=== PATIENT | female | born 1945 | race Caucasian/White ===

== ENCOUNTER 2019-06-29 11:59 | Inpatient (IN) | payer MEDICARE, MEDICAID ==
[~2019-06-29] VITALS: Ht 160 cm; Wt 87.1 kg
[2019-06-29] MEDS ORDERED: ALBU8.5H8 INH (12:28)
[2019-06-29] MEDS ORDERED: IPRA3AMP23 NEB (12:28)
[2019-06-29] MEDS ORDERED: SENN-18 PO (12:28)
[2019-06-29] MEDS ORDERED: BUSP10TA3 PO (12:28)
[2019-06-29] MEDS ORDERED: QUET50TA PO (12:28)
[2019-06-29] MEDS ORDERED: ASPI81TA31 PO (12:28)
[2019-06-29] MEDS ORDERED: EZET10TA32 PO (12:28)
[2019-06-29] MEDS ORDERED: HYDR-4354 PO (12:28)
[2019-06-29] MEDS ORDERED: OMEP20CA11 PO (12:28)
[2019-06-29] MEDS ORDERED: DOCU250C89 PO (12:28)
[2019-06-29] MEDS ORDERED: LORA2TAB95 PO (12:28)
[2019-06-29] MEDS ORDERED: MIRT15TA7 PO (12:28)
[2019-06-29] MEDS ORDERED: OXYB10TA2 PO (12:28)
[2019-06-29] MEDS ORDERED: METO50TA16 PO (12:28)
[2019-06-29] MEDS ORDERED: BUDE10.2 INH (12:28)
[2019-06-29] MEDS ORDERED: QUET300T2 PO (12:28)
[2019-06-29] MEDS ORDERED: SIMV-46 PO (12:28)
[2019-06-29] MEDS ORDERED: [UNRECOGNIZED DRUG - CODE] SL (12:28)
[2019-06-29] MEDS ORDERED: MELA5TAB PO (12:28)
[2019-06-29] MEDS ORDERED: VENL75CA56 PO (12:28)
[2019-06-29] MEDS ORDERED: METF-440 PO (12:28)
[2019-06-29 12:45] VITALS: BP 151/73
[2019-06-29] MEDS ORDERED: MAG HYDROX/AL HYDROX/SIMETH 30 ML LIQUID UDC PO PRN (14:00)
[2019-06-29] MEDS ORDERED: BLOOD SUGAR DIAGNOSTIC 1 EACH STRIP VI ONE (14:00)
[2019-06-29 15:24] VITALS: BP 97/43
[2019-06-29] MEDS: CLONAZEPAM 0.5 MG TABLET PO PRN ×2 (16:37→22:45)
[2019-06-29] MEDS: ACETAMINOPHEN 325 MG TABLET PO PRN (16:38)
[2019-06-29] MEDS ORDERED: ALBUTEROL SULFATE 8 GM HFA.AER.AD INH PRN (17:15)
[2019-06-29] MEDS ORDERED: PNEUMOCOCCAL 23-VAL P-SAC VAC 0.5 ML VIAL IM ONE (18:00)
[2019-06-29 20:00] VITALS: BP 141/50
[2019-06-29] MEDS: SIMVASTATIN 20 MG TABLET PO SCH (20:19)
[2019-06-29] MEDS: HYDROCODONE/APAP 10-325 MG TABLET PO PRN (22:45)
[2019-06-30] MEDS: TEMAZEPAM 7.5 MG CAPSULE PO PRN ×2 (01:11→21:20)
[2019-06-30] MEDS: ACETAMINOPHEN 325 MG TABLET PO PRN ×3 (04:59→22:35)
[2019-06-30 06:58] LABS: BASOPHILS % (AUTO) 0.8 % (0.0-2.0); EOSINOPHILS # (AUTO) 0.1 K/uL (0.0-0.7); EOSINOPHILS % (AUTO) 1.3 % (0.0-7.0); HEMATOCRIT 34.2 % (31.2-41.9); HEMOGLOBIN 11.5 g/dL (10.9-14.3); LYMPHOCYTES # (AUTO) 1.2 K/uL (20.0-40.0); LYMPHOCYTES % (AUTO) 19.4 % (20.5-51.5); MEAN CORPUSCULAR HEMOGLOBIN 31.2 uug (24.7-32.8); MEAN CORPUSCULAR HGB CONC 34 g/dL (32.3-35.6); MEAN CORPUSCULAR VOLUME 93.1 fL (75.5-95.3); MONOCYTES # (AUTO) 0.4 K/uL (2.0-10.0); MONOCYTES % (AUTO) 6.4 % (0.0-11.0); NEUTROPHILS # (AUTO) 4.3 K/uL (1.8-8.9); NEUTROPHILS % (AUTO) 72.1 % (38.5-71.5); PLATELET COUNT (AUTO) 203 K/uL (179-408); RED BLOOD CELL COUNT(AUTO) 3.68 MIL/uL (3.63-4.92)
[2019-06-30 07:15] LABS: THYROID STIMULATING HORMONE 1.264 mIU/mL (0.358-3.740)
[2019-06-30 07:33] LABS: BILIRUBIN,TOTAL 0.2 mg/dL (0.2-1.0); CREATININE 0.7 mg/dL (0.6-1.3); MAGNESIUM 1.4 mg/dL (1.8-2.4); PHOSPHOROUS 3.1 mg/dL (2.5-4.9); POTASSIUM 4.1 mmol/L (3.5-5.1); TOTAL PROTEIN, SERUM 6.9 g/dL (6.4-8.2)
[2019-06-30 08:00] VITALS: BP 166/40
[2019-06-30] MEDS: METFORMIN HCL 500 MG TABLET PO SCH ×2 (08:29→17:30)
[2019-06-30] MEDS: SENNOSIDES 1 TABLET PO SCH ×2 (08:31→16:33)
[2019-06-30] MEDS: HYDROCODONE/APAP 10-325 MG TABLET PO PRN ×2 (08:31→20:10)
[2019-06-30] MEDS: ASPIRIN 81 MG TAB.CHEW PO SCH (08:31)
[2019-06-30] MEDS: DOCUSATE SODIUM 250 MG CAPSULE PO SCH ×2 (08:31→16:33)
[2019-06-30] MEDS: EZETIMIBE 10 MG TABLET PO SCH (08:32)
[2019-06-30] MEDS: OXYBUTYNIN XL 5 MG TABSR PO SCH (08:32)
[2019-06-30] MEDS ORDERED: OXYBUTYNIN CHLORIDE 20 MG PO SCH (09:00)
[2019-06-30] MEDS ORDERED: HYDROCODONE/APAP 10-325 MG TABLET PO SCH (09:00)
[2019-06-30] MEDS ORDERED: MAGNESIUM OXIDE 400 MG TABLET PO ONE (14:15)
[2019-06-30] MEDS: CLONAZEPAM 0.5 MG TABLET PO PRN (15:22)
[2019-06-30 16:00] VITALS: BP 194/91
[2019-06-30] MEDS: FLUTICASONE/VILANTEROL 1 EACH BLST.W.DEV INH SCH (16:21)
[2019-06-30] MEDS: VENLAFAXINE 25 MG TABLET PO SCH ×2 (16:29→20:45)
[2019-06-30] MEDS: busPIRone 10 MG TABLET PO SCH (16:30)
[2019-06-30] MEDS: QUETIAPINE FUMARATE 25 MG TABLET PO SCH (16:33)
[2019-06-30 18:09] VITALS: BP 153/72
[2019-06-30 20:17] VITALS: BP 133/48
[2019-06-30] MEDS: SIMVASTATIN 20 MG TABLET PO SCH (20:45)
[2019-06-30] MEDS: MIRTAZAPINE 15 MG TABLET PO SCH (20:46)
[2019-06-30] MEDS: QUETIAPINE FUMARATE 200 MG TABLET PO SCH (20:46)
[2019-07-01] MEDS: CLONAZEPAM 0.5 MG TABLET PO PRN (04:49)
[2019-07-01] MEDS: ACETAMINOPHEN 325 MG TABLET PO PRN (04:49)
[2019-07-01 07:30] VITALS: BP 152/68
[2019-07-01] MEDS: FLUTICASONE/VILANTEROL 1 EACH BLST.W.DEV INH SCH (08:02)
[2019-07-01] MEDS: METFORMIN HCL 500 MG TABLET PO SCH ×2 (08:02→17:12)
[2019-07-01] MEDS: SENNOSIDES 1 TABLET PO SCH ×2 (08:02→16:45)
[2019-07-01] MEDS: QUETIAPINE FUMARATE 25 MG TABLET PO SCH ×2 (08:02→16:46)
[2019-07-01] MEDS: ASPIRIN 81 MG TAB.CHEW PO SCH (08:02)
[2019-07-01] MEDS: OXYBUTYNIN XL 5 MG TABSR PO SCH (08:03)
[2019-07-01] MEDS: EZETIMIBE 10 MG TABLET PO SCH (08:03)
[2019-07-01] MEDS: VENLAFAXINE 25 MG TABLET PO SCH ×2 (08:03→20:16)
[2019-07-01] MEDS: DOCUSATE SODIUM 250 MG CAPSULE PO SCH ×2 (08:04→16:46)
[2019-07-01] MEDS: busPIRone 10 MG TABLET PO SCH ×3 (08:09→16:46)
[2019-07-01 09:06] LABS: *BILIRUBIN,URIN NEGATIVE (NEGATIVE); *BLOOD, URINE NEGATIVE (NEGATIVE); *CLARITY,URINE CLEAR (CLEAR); *COLOR,URINE YELLOW (YELLOW); *KETONES,URINE NEGATIVE (NEGATIVE); *UROBILINOGEN,URINE 0.2 E.U./dl (NORMAL); LEUKOCYTE ESTERASE ,URINE 2+ (NEGATIVE); NITRITE, URINE POSITIVE (NEGATIVE); UGLUCOSE NEGATIVE (NEGATIVE)
[2019-07-01 09:44] LABS: BACTERIA,URINE MANY /HPF (NONE SEEN); RBC,URINE 0-3 /HPF (0-3)
[2019-07-01] MEDS: HYDROCODONE/APAP 10-325 MG TABLET PO PRN ×2 (11:31→20:23)
[2019-07-01] MEDS: CEphaleXIN 500 MG CAPSULE PO SCH ×2 (13:49→20:17)
[2019-07-01 16:00] VITALS: BP 155/64
[2019-07-01] MEDS: SIMVASTATIN 20 MG TABLET PO SCH (20:16)
[2019-07-01 20:35] VITALS: BP 175/77
[2019-07-01] MEDS: MIRTAZAPINE 15 MG TABLET PO SCH (21:11)
[2019-07-01] MEDS: QUETIAPINE FUMARATE 200 MG TABLET PO SCH (21:12)
[2019-07-01] MEDS: TEMAZEPAM 7.5 MG CAPSULE PO PRN (22:24)
[2019-07-02] MEDS: ACETAMINOPHEN 325 MG TABLET PO PRN ×2 (03:55→16:38)
[2019-07-02] MEDS: IPRATROPIUM BROMIDE 0.5 MG/2.5 ML NEBU NEB PRN (04:10)
[2019-07-02] MEDS: ALBUTEROL SULFATE 2.5 MG/3 ML NEBU NEB PRN (04:10)
[2019-07-02] MEDS: CLONAZEPAM 0.5 MG TABLET PO PRN ×2 (04:39→22:40)
[2019-07-02] MEDS: CEphaleXIN 500 MG CAPSULE PO SCH ×3 (05:15→20:51)
[2019-07-02 07:30] VITALS: BP 160/84
[2019-07-02] MEDS: QUETIAPINE FUMARATE 25 MG TABLET PO SCH ×2 (09:01→16:38)
[2019-07-02] MEDS: SENNOSIDES 1 TABLET PO SCH ×2 (09:01→16:37)
[2019-07-02] MEDS: ASPIRIN 81 MG TAB.CHEW PO SCH (09:02)
[2019-07-02] MEDS: METFORMIN HCL 500 MG TABLET PO SCH ×2 (09:02→16:38)
[2019-07-02] MEDS: HYDROCODONE/APAP 10-325 MG TABLET PO PRN ×2 (09:02→21:05)
[2019-07-02] MEDS: DOCUSATE SODIUM 250 MG CAPSULE PO SCH ×2 (09:02→16:42)
[2019-07-02] MEDS: OXYBUTYNIN XL 5 MG TABSR PO SCH (09:03)
[2019-07-02] MEDS: busPIRone 10 MG TABLET PO SCH ×3 (09:03→16:38)
[2019-07-02] MEDS: EZETIMIBE 10 MG TABLET PO SCH (09:03)
[2019-07-02] MEDS: FLUTICASONE/VILANTEROL 1 EACH BLST.W.DEV INH SCH (09:07)
[2019-07-02] MEDS: VENLAFAXINE 25 MG TABLET PO SCH ×2 (09:07→20:45)
[2019-07-02] MEDS ORDERED: IBUPROFEN 600 MG TABLET PO PRN (13:00)
[2019-07-02] MEDS: IBUPROFEN 400 MG TABLET PO PRN ×2 (13:05→22:03)
[2019-07-02 16:00] VITALS: BP 139/57
[2019-07-02 20:43] VITALS: BP 156/63
[2019-07-02] MEDS: QUETIAPINE FUMARATE 200 MG TABLET PO SCH (20:45)
[2019-07-02] MEDS: SIMVASTATIN 20 MG TABLET PO SCH (20:48)
[2019-07-02] MEDS: MIRTAZAPINE 15 MG TABLET PO SCH (20:50)
[2019-07-03] MEDS: ACETAMINOPHEN 325 MG TABLET PO PRN (02:25)
[2019-07-03] MEDS: CEphaleXIN 500 MG CAPSULE PO SCH ×2 (06:28→13:22)
[2019-07-03] MEDS: IBUPROFEN 400 MG TABLET PO PRN ×3 (06:28→23:12)
[2019-07-03 07:30] VITALS: BP 156/72
[2019-07-03] MEDS: ASPIRIN 81 MG TAB.CHEW PO SCH (08:43)
[2019-07-03] MEDS: DOCUSATE SODIUM 250 MG CAPSULE PO SCH ×2 (08:43→17:12)
[2019-07-03] MEDS: EZETIMIBE 10 MG TABLET PO SCH (08:44)
[2019-07-03] MEDS: VENLAFAXINE 25 MG TABLET PO SCH ×2 (08:44→20:55)
[2019-07-03] MEDS: OXYBUTYNIN XL 5 MG TABSR PO SCH (08:45)
[2019-07-03] MEDS: busPIRone 10 MG TABLET PO SCH ×3 (08:45→17:12)
[2019-07-03] MEDS: FLUTICASONE/VILANTEROL 1 EACH BLST.W.DEV INH SCH (08:46)
[2019-07-03] MEDS: QUETIAPINE FUMARATE 25 MG TABLET PO SCH ×2 (08:50→17:12)
[2019-07-03] MEDS: SENNOSIDES 1 TABLET PO SCH ×2 (08:50→17:12)
[2019-07-03] MEDS: METFORMIN HCL 500 MG TABLET PO SCH ×2 (09:00→18:16)
[2019-07-03] MEDS: HYDROCODONE/APAP 10-325 MG TABLET PO PRN (13:34)
[2019-07-03 16:45] VITALS: BP 143/52
[2019-07-03 20:30] VITALS: BP 161/65
[2019-07-03] MEDS: SIMVASTATIN 20 MG TABLET PO SCH (20:55)
[2019-07-03] MEDS: MIRTAZAPINE 15 MG TABLET PO SCH (20:55)
[2019-07-03] MEDS: SULFAMETH/TRIMETH 800/160 MG TABLET PO SCH (20:55)
[2019-07-03] MEDS: QUETIAPINE FUMARATE 200 MG TABLET PO SCH (20:56)
[2019-07-03] MEDS: TEMAZEPAM 7.5 MG CAPSULE PO PRN (22:30)
[2019-07-04] MEDS: IPRATROPIUM BROMIDE 0.5 MG/2.5 ML NEBU NEB PRN (01:09)
[2019-07-04] MEDS: ALBUTEROL SULFATE 2.5 MG/3 ML NEBU NEB PRN ×2 (01:09→15:34)
[2019-07-04] MEDS: HYDROCODONE/APAP 10-325 MG TABLET PO PRN ×2 (06:40→21:36)
[2019-07-04] MEDS: METFORMIN HCL 500 MG TABLET PO SCH ×2 (07:56→17:01)
[2019-07-04 08:00] VITALS: BP 146/66
[2019-07-04] MEDS: DOCUSATE SODIUM 250 MG CAPSULE PO SCH ×2 (08:00→16:05)
[2019-07-04] MEDS: ASPIRIN 81 MG TAB.CHEW PO SCH (08:00)
[2019-07-04] MEDS: QUETIAPINE FUMARATE 25 MG TABLET PO SCH ×2 (08:00→16:05)
[2019-07-04] MEDS: SULFAMETH/TRIMETH 800/160 MG TABLET PO SCH ×2 (08:00→20:31)
[2019-07-04] MEDS: OXYBUTYNIN XL 5 MG TABSR PO SCH (08:00)
[2019-07-04] MEDS: SENNOSIDES 1 TABLET PO SCH ×2 (08:00→16:05)
[2019-07-04] MEDS: EZETIMIBE 10 MG TABLET PO SCH (08:01)
[2019-07-04] MEDS: FLUTICASONE/VILANTEROL 1 EACH BLST.W.DEV INH SCH (08:01)
[2019-07-04] MEDS: VENLAFAXINE 25 MG TABLET PO SCH ×2 (08:01→20:34)
[2019-07-04] MEDS: busPIRone 10 MG TABLET PO SCH ×3 (08:06→16:04)
[2019-07-04] MEDS: IBUPROFEN 400 MG TABLET PO PRN (11:46)
[2019-07-04 16:11] VITALS: BP 125/68
[2019-07-04 20:13] VITALS: BP 157/66
[2019-07-04] MEDS: QUETIAPINE FUMARATE 200 MG TABLET PO SCH (20:31)
[2019-07-04] MEDS: MIRTAZAPINE 15 MG TABLET PO SCH (20:32)
[2019-07-04] MEDS: SIMVASTATIN 20 MG TABLET PO SCH (20:33)
[2019-07-05] MEDS: CLONAZEPAM 0.5 MG TABLET PO PRN ×2 (03:34→17:11)
[2019-07-05] MEDS: HYDROCODONE/APAP 10-325 MG TABLET PO PRN ×2 (07:44→15:25)
[2019-07-05] MEDS: VENLAFAXINE 25 MG TABLET PO SCH ×2 (08:00→20:23)
[2019-07-05] MEDS: OXYBUTYNIN XL 5 MG TABSR PO SCH (08:00)
[2019-07-05] MEDS: SULFAMETH/TRIMETH 800/160 MG TABLET PO SCH ×2 (08:00→20:23)
[2019-07-05] MEDS: SENNOSIDES 1 TABLET PO SCH ×2 (08:00→16:33)
[2019-07-05] MEDS: METFORMIN HCL 500 MG TABLET PO SCH ×2 (08:00→17:12)
[2019-07-05] MEDS: QUETIAPINE FUMARATE 25 MG TABLET PO SCH ×2 (08:00→16:33)
[2019-07-05] MEDS: busPIRone 10 MG TABLET PO SCH ×3 (08:00→16:33)
[2019-07-05] MEDS: ASPIRIN 81 MG TAB.CHEW PO SCH (08:00)
[2019-07-05] MEDS: EZETIMIBE 10 MG TABLET PO SCH (08:00)
[2019-07-05] MEDS: DOCUSATE SODIUM 250 MG CAPSULE PO SCH ×2 (08:00→16:33)
[2019-07-05] MEDS: FLUTICASONE/VILANTEROL 1 EACH BLST.W.DEV INH SCH (08:01)
[2019-07-05 08:10] VITALS: BP 169/70
[2019-07-05] MEDS: IBUPROFEN 400 MG TABLET PO PRN ×2 (13:27→20:30)
[2019-07-05 16:24] VITALS: BP 146/77
[2019-07-05 20:00] VITALS: BP 132/67
[2019-07-05] MEDS: SIMVASTATIN 20 MG TABLET PO SCH (20:23)
[2019-07-05] MEDS: MIRTAZAPINE 15 MG TABLET PO SCH (20:23)
[2019-07-05] MEDS: QUETIAPINE FUMARATE 200 MG TABLET PO SCH (20:24)
[2019-07-05] MEDS: TEMAZEPAM 7.5 MG CAPSULE PO PRN (22:28)
[2019-07-06] MEDS: HYDROCODONE/APAP 10-325 MG TABLET PO PRN (04:06)
[2019-07-06] MEDS: CLONAZEPAM 0.5 MG TABLET PO PRN ×2 (04:09→10:52)
[2019-07-06] MEDS: METFORMIN HCL 500 MG TABLET PO SCH (07:19)
[2019-07-06 07:30] VITALS: BP 147/63
[2019-07-06] MEDS: QUETIAPINE FUMARATE 25 MG TABLET PO SCH (08:12)
[2019-07-06] MEDS: DOCUSATE SODIUM 250 MG CAPSULE PO SCH (08:12)
[2019-07-06] MEDS: FLUTICASONE/VILANTEROL 1 EACH BLST.W.DEV INH SCH (08:12)
[2019-07-06] MEDS: ASPIRIN 81 MG TAB.CHEW PO SCH (08:12)
[2019-07-06] MEDS: SENNOSIDES 1 TABLET PO SCH (08:13)
[2019-07-06] MEDS: SULFAMETH/TRIMETH 800/160 MG TABLET PO SCH (08:13)
[2019-07-06] MEDS: OXYBUTYNIN XL 5 MG TABSR PO SCH (08:14)
[2019-07-06] MEDS: busPIRone 10 MG TABLET PO SCH (08:14)
[2019-07-06] MEDS: VENLAFAXINE 25 MG TABLET PO SCH (08:15)
[2019-07-06] MEDS: EZETIMIBE 10 MG TABLET PO SCH (08:15)
[2019-07-06] MEDS: IBUPROFEN 400 MG TABLET PO PRN (10:52)
== END 2019-07-06 12:29 | DRG 885 ==
LOC: ER 12:01 → GPS 12:27
PROVIDERS: ADMIT Psychiatry & Neurology Psychiatry; ATTEND Internal Medicine
DX: F33.2 Major depressive disorder, recurrent severe without psychotic features (principal); G93.41 Metabolic encephalopathy; N39.0 Urinary tract infection, site not specified; E11.9 Type 2 diabetes mellitus without complications; E83.42 Hypomagnesemia; E78.5 Hyperlipidemia, unspecified; F43.12 Post-traumatic stress disorder, chronic; X58.XXXS Exposure to other specified factors, sequela; Z79.899 Other long term (current) drug therapy; Z91.5 Personal history of self-harm; M25.511 Pain in right shoulder; R07.81 Pleurodynia; Z91.81 History of falling; K21.9 Gastro-esophageal reflux disease without esophagitis; Z86.73 Personal history of transient ischemic attack (TIA), and cerebral infarction without residual deficits
CPT/HCPCS: 36415; 70030-TC; 71045; 71250; 83735; 84100; 84443; 85025; 87077; 87086; 90732; 94640; 94664; A4663; J3590